=== PATIENT | female | born 1965 | race American Indian/Alaskan Native ===

== ENCOUNTER 2018-08-07 19:29 | Inpatient (IN) | payer SELFPAY ==
[2018-08-07 20:11] LABS: Basophils # (Auto) 0.1 K/mm3 (0.0-0.1); Basophils % (Auto) 0.9 % (0.0-1.8); Eosinophils # (Auto) 0.1 K/mm3 (0.0-0.4); Eosinophils % (Auto) 1.5 % (0.0-4.3); Hematocrit 44.8 % (30.3-42.9); Hemoglobin 15.4 gm/dl (10.1-14.3); Lymphocytes # (Auto) 0.8 K/mm3 (1.2-5.4); Lymphocytes % (Auto) 13.7 % (13.4-35.0); Mean Corpuscular HGB Conc 34 % (30-34); Mean Corpuscular Volume 91 fl (79-97); Monocytes # (Auto) 0.8 K/mm3 (0.0-0.8); Monocytes % (Auto) 12.5 % (0.0-7.3); Platelet Count 191 K/mm3 (140-440); Red Blood Count 4.92 M/mm3 (3.65-5.03); Red Cell Distribution Width 15.3 % (13.2-15.2)
[2018-08-07 20:28] LABS: BUN/Creatinine Ratio 8; Blood Urea Nitrogen 8 mg/dL (7-17); Calcium 8.9 mg/dL (8.4-10.2); Hemolysis Index 5
[2018-08-07 21:31] LABS: INR 1.06 (0.87-1.13)
[2018-08-07 21:32] LABS: Partial Thromboplastin Time 27.5 Sec. (24.2-36.6)
--- NOTE | 2018-08-07 21:43 | XRay Report ---
FINAL REPORT EXAM: XR CHEST ROUTINE 2V HISTORY: Shortness of breath TECHNIQUE: Two views of the chest Comparison: None FINDINGS: Heart size upper limits normal. Mild scarring in both lung bases. Lungs are clear and well expanded without focal infiltrate or consolidation. Imaged axial skeleton is unremarkable other than mild left greater than right acromioclavicular degen erative spurring and incompletely imaged bone chip along the superior aspect of the right humeral hea d. IMPRESSION: No acute cardiopulmonary disease identified. Heart size upper limits normal.
[2018-08-07] MEDS ORDERED: ZOFRAN IV ONE (21:45)
[2018-08-07] MEDS ORDERED: DILAUDID IV ONE (21:45)
[2018-08-07] MEDS ORDERED: K-DUR PO ONE (21:50)
--- NOTE | 2018-08-07 21:51 | Emergency Department Report ---
ED Headache [facility] - General Chief Complaint: Dyspnea/Respdistress Stated Complaint: SOB Time Seen by Provider: 08/07/18 21:35 Source: patient Exam Limitations: no limitations - History of Present Illness Initial Comments: 53-year-old female with a past medical history of CHF (currently wearing a life vest), frequent PVCs, and nontraumatic mitral valve regurgitation visits to the hospital complaining of headache and neck pain 3 days. 3 days ago patient had onset of pain to her neck or headache and has been constant. Pain reported as 9/10 in intensity. Patient was tearful upon arrival states she has not been able to sleep for several days secondary to pain. She's taken [id number] medicine without improvement. She also complains of some mild shortness of breath and dyspnea on exertion. She denies chest pain, pain with deep inspiration, calf tenderness, leg edema, or history of PE/DVT. Patient relocated here from [place] on June 30 and has not traveled since. She does not have any local physicians.. Allergies/Adverse Reactions: Allergies No Known Allergies Allergy (Unverified 08/07/18 19:48) ED Review of Systems ROS: Stated complaint: SOB Other details as noted in HPI ED Past Medical Hx - Past Medical History Hx Congestive Heart Failure: Yes (heart muscle disorder,Non-traumatic Mitral Regurgitation,PVC'S) Hx Asthma: Yes Additional medical history: life vest - Surgical History Past Surgical History?: No - Social History Smoking Status: Current Every Day Smoker Substance Use Type: None ED Physical Exam - General Limitations: No Limitations - Other Other exam information: General: No limitations, patient is alert in no acute distress Head exam: Atraumatic, normocephalic Eyes exam: Normal appearance, pupils equal reactive to light, extraocular movements intact ENT: Moist mucous membrane, normal oropharynx Neck exam: Normal inspection, full range of motion, no meningismus, posterior neck tenderness worse with movement Respiratory exam: Clear to auscultation bilateral, no wheezes, rales, crackles Cardiovascular: Normal rate and rhythm, normal heart sounds Abdomen: Soft, nondistended, and nontender, with normal bowel sounds, no rebound, or guarding Extremity: Full range of motion normal inspection no deformity, no calf tenderness or edema Back: Normal Inspection, full range of motion, no tenderness Neurologic: Alert, oriented x3, cranial nerves intact, no motor or sensory deficit Psychiatric: normal affect, normal mood Skin: Warm, dry, intact ED Course Vital Signs 08/07/18 08/07/18 08/07/18 19:42 21:00 21:43 Temperature 99.5 F Pulse Rate 103 H 57 L Respiratory 24 26 H Rate Blood Pressure 143/85 189/116 O2 Sat by Pulse 100 100 100 Oximetry 08/07/18 08/07/18 08/07/18 21:45 22:00 22:05 Temperature Pulse Rate Respiratory 22 24 Rate Blood Pressure 145/90 145/90 O2 Sat by Pulse 96 97 Oximetry 08/07/18 08/07/18 08/07/18 22:34 22:46 22:47 Temperature Pulse Rate 54 L Respiratory Rate Blood Pressure 145/90 119/68 O2 Sat by Pulse 98 95 Oximetry 08/07/18 08/07/18 08/07/18 23:00 23:16 23:30 Temperature Pulse Rate Respiratory Rate Blood Pressure 119/68 109/46 109/46 O2 Sat by Pulse 94 90 96 Oximetry 08/07/18 08/08/18 08/08/18 23:49 00:01 00:16 Temperature Pulse Rate Respiratory Rate Blood Pressure 114/47 118/46 106/39 O2 Sat by Pulse 95 90 Oximetry 08/08/18 08/08/18 08/08/18 00:30 00:46 01:00 Temperature Pulse Rate Respiratory Rate Blood Pressure 106/39 116/52 110/60 O2 Sat by Pulse 94 91 94 Oximetry 08/08/18 08/08/18 08/08/18 01:16 01:31 01:45 Temperature Pulse Rate Respiratory Rate Blood Pressure 124/55 103/44 103/41 O2 Sat by Pulse 95 93 96 Oximetry 08/08/18 08/08/18 08/08/18 02:00 02:15 02:18 Temperature Pulse Rate 64 Respiratory Rate Blood Pressure 103/41 88/48 O2 Sat by Pulse 96 94 Oximetry - Reevaluation(s) Reevaluation #1: 08/08/18 00:49 Patient has some decrease in the pain after receiving initial dose of medication. She seems to have pain with touching and moving her neck from side to side will be provided additional meds. Reevaluation #2: 08/08/18 03:16 Patient's blood pressure systolic currently in the 80s and patient diaphoretic. 500 mL bolus of normal saline ordered. 08/08/18 03:34 Patient receiving normal saline IV bolus. Systolic is now in the 90s. Patient states she is feeling better with fluid hydration. She also states that she can now move her neck after receiving additional Dilaudid, Toradol, and Flexeril. It is possible that these medications might cause an acute drop in her blood pressure. ED Medical Decision Making - Lab Data Result diagrams: 08/07/18 20:00 08/07/18 20:00 Lab Results 08/07/18 08/07/18 08/07/18 Range/Units 20:00 20:00 21:10 WBC 6.0 (4.5-11.0) K/mm3 RBC 4.92 (3.65-5.03) M/mm3 Hgb 15.4 H (10.1-14.3) gm/dl Hct 44.8 H (30.3-42.9) % MCV 91 (79-97) fl MCH 31 (28-32) pg MCHC 34 (30-34) % RDW 15.3 H (13.2-15.2) % Plt Count 191 (140-440) K/mm3 Lymph % (Auto) 13.7 (13.4-35.0) % Real % (Auto) 12.5 H (0.0-7.3) % Eos % (Auto) 1.5 (0.0-4.3) % Baso % (Auto) 0.9 (0.0-1.8) % Lymph # 0.8 L (1.2-5.4) K/mm3 Real # 0.8 (0.0-0.8) K/mm3 Eos # 0.1 (0.0-0.4) K/mm3 Baso # 0.1 (0.0-0.1) K/mm3 Seg Neutrophils % 71.4 H (40.0-70.0) % Seg Neutrophils # 4.3 (1.8-7.7) K/mm3 PT 14.2 (12.2-14.9) Sec. INR 1.06 (0.87-1.13) APTT 27.5 (24.2-36.6) Sec. Sodium 136 L (137-145) mmol/L Potassium 3.3 L (3.6-5.0) mmol/L Chloride 98.6 (98-107) mmol/L Carbon Dioxide 23 (22-30) mmol/L Anion Gap 18 mmol/L BUN 8 (7-17) mg/dL Creatinine 1.0 (0.7-1.2) mg/dL Estimated GFR 58 ml/min BUN/Creatinine Ratio 8 % Glucose 117 H (65-100) mg/dL Calcium 8.9 (8.4-10.2) mg/dL Magnesium (1.7-2.3) mg/dL Troponin T < 0.010 (0.00-0.029) ng/mL NT-Pro-B Natriuret Pep (0-900) pg/mL 08/07/18 08/07/18 Range/Units 21:10 21:10 WBC (4.5-11.0) K/mm3 RBC (3.65-5.03) M/mm3 Hgb (10.1-14.3) gm/dl Hct (30.3-42.9) % MCV (79-97) fl MCH (28-32) pg MCHC (30-34) % RDW (13.2-15.2) % Plt Count (140-440) K/mm3 Lymph % (Auto) (13.4-35.0) % Real % (Auto) (0.0-7.3) % Eos % (Auto) (0.0-4.3) % Baso % (Auto) (0.0-1.8) % Lymph # (1.2-5.4) K/mm3 Real # (0.0-0.8) K/mm3 Eos # (0.0-0.4) K/mm3 Baso # (0.0-0.1) K/mm3 Seg Neutrophils % (40.0-70.0) % Seg Neutrophils # (1.8-7.7) K/mm3 PT (12.2-14.9) Sec. INR (0.87-1.13) APTT (24.2-36.6) Sec. Sodium (137-145) mmol/L Potassium (3.6-5.0) mmol/L Chloride (98-107) mmol/L Carbon Dioxide (22-30) mmol/L Anion Gap mmol/L BUN (7-17) mg/dL Creatinine (0.7-1.2) mg/dL Estimated GFR ml/min BUN/Creatinine Ratio % Glucose (65-100) mg/dL Calcium (8.4-10.2) mg/dL Magnesium 2.00 (1.7-2.3) mg/dL Troponin T (0.00-0.029) ng/mL NT-Pro-B Natriuret Pep 2583 H (0-900) pg/mL - EKG Data -: EKG Interpreted by Me EKG shows normal: sinus rhythm, axis (qrs 23), QRS complexes (qrsd 84), ST-T waves (no stemi, pvc) Rate: normal - EKG Data When compared to previous EKG there are: previous EKG unavailable - Radiology Data Radiology results: report reviewed Two-view chest x-ray: No acute findings. Heart size upper limits of normal. - Medical Decision Making Patient developed hypotension in the ED during treatment. She will be admitted to the hospital. Imaging studies did not show specific cause for patient's headache and neck pain. No acute abnormality on chest x-ray. Hospitalist inf ormed for admission - Differential Diagnosis dissection, aneurysm, SAH, ICH, CHF Critical Care Time: No Critical care attestation.: If time is entered above; I have spent that time in minutes in the direct care of this critically ill patient, excluding procedure time. ED Disposition Clinical Impression: Headache, Neck pain, SOB (shortness of breath), Hx of congestive heart failure, Hypotension Disposition: OP ADMIT IP TO THIS HOSP Is pt being admited?: Yes Condition: Stable Time of Disposition: 03:35 (Dr. Thornton/Hospitalist)
[2018-08-07] MEDS ORDERED: KCL 10MEQ/100ML 10 MEQ/100 ML BAG IV SCH (22:00)
--- NOTE | 2018-08-07 22:56 | Cat Scan Report ---
FINAL REPORT PROCEDURE: CT HEAD/BRAIN WO CON TECHNIQUE: Computerized tomography of the head was performed without contrast material. HISTORY: najera, neck pain COMPARISON: No prior studies are available for comparison. FINDINGS: Skull and scalp: Normal. Paranasal sinuses: Normal. Ventricles and subarachnoid spaces: Normal. Cerebrum: No evidence of hemorrhage, acute infarction or mass . Cerebellum and brainstem: No evidence of hemorrhage, acute infarction or mass. Vasculature: Normal. Comments: None. IMPRESSION: Normal Examination
--- NOTE | 2018-08-07 23:04 | Cat Scan Report ---
FINAL REPORT PROCEDURE: CT ANGIO NECK TECHNIQUE: Computerized tomographic angiography of the neck was performed after the IV injection of iodinated nonionic contrast including image processing. The image data was postprocessed using 2-dime nsional multiplanar reformatted (MPR) and 3-dimensional (MIP and/or volume rendered) techniques. HISTORY: najera, neck pain COMPARISON: No prior studies are available for comparison. Note: Assessment of carotid artery stenosis is based on measurement of the distal internal carotid a rtery diameter as the denominator for stenosis calculations and the [place] Symptomatic Caroti d Endarterectomy Trial (NASCET) stenosis criteria . CPT 3100F FINDINGS: Sinuses: Normal . Non vascular cervical structures: Cervical spondylosis.. Aortic arch: Normal . Right carotid artery: Normal . Left carotid artery: Mild plaque at the carotid bifurcation. No focal narrowing. Vertebral arteries: Normal . IMPRESSION: No stenosis or dissection.
--- NOTE | 2018-08-07 23:09 | Cat Scan Report ---
FINAL REPORT PROCEDURE: CT ANGIO HEAD TECHNIQUE: Computerized tomographic angiography of the head was performed after the IV injection of iodinated nonionic contrast including image processing. The image data was postprocessed using 2-dime nsional multiplanar reformatted (MPR) and 3-dimensional (MIP and/or volume rendered) techniques. HISTORY: najera, neck pain COMPARISON: No prior studies are available for comparison. FINDINGS: Cerebrum: No evidence of hemorrhage, acute ischemia or mass. Cerebellum: No evidence of hemorrhage, acute ischemia or mass. Subarachnoid spaces and ventricles: Normal. Intracranial vessels: Carotid siphon: Normal. Anterior cerebral: Normal. Middle cerebral: Normal. Posterior cerebral:Normal. Vertebral arteries including basilar: Normal. Aneurysms: None. Dural sinuses: Normal. IMPRESSION: Normal Examination.
[2018-08-08] MEDS ORDERED: TORADOL IV ONE (00:49)
[2018-08-08] MEDS ORDERED: FLEXERIL PO ONE ×2 (00:49→00:52)
[2018-08-08] MEDS ORDERED: DILAUDID IV ONE (00:49)
[2018-08-08] MEDS ORDERED: NACL 0.9% 500 ML 500 ML IV ONE ×2 (03:15→04:10)
[2018-08-08] MEDS ORDERED: NACL 0.9% 500 ML 500 ML ONE (03:19)
[2018-08-08] MEDS ORDERED: ZOFRAN IV PRN (04:03)
[2018-08-08] MEDS ORDERED: SODIUM CHLORIDE FLUSH SYRINGE 10 ML IV PRN (04:03)
--- NOTE | 2018-08-08 04:10 | History and Physical Report ---
History of Present Illness Date of examination: 08/08/18 History of present illness: 53-year-old woman with a history of CHF, diagnosed in April of last year, started wearing a life vest comes emergency room today because she was having pain started in the right side of the neck going although he upped the forehead, she describes it as a pulsating pain, intermittent over 1 minute, no radiation, intensity 7/10, not relieved with amoxicillin and Tylenol which she took at home. She was given dilaudid in the emergency room, her pressure dropped and was given 500 mL normal saline bolus. Patient states that she has shortness of breath when she realized that she had to come to the emergency room, she usually get panic attacks when she has about a hospital Review of systems Constitutional: no weight loss, chills, fever Ears, eyes, nose, mouth and throat: no nasal congestion, no nasal discharge, no sinus pressure, no vision change, no red eye. Neck: No neck pain or rigidity. Cardiovascular: no palpitations, chest pain Respiratory: no cough Gastrointestinal: no hematochezia, abdominal pain Genitourinary : no frequency , no hematuria Musculoskeletal: no joint swelling or muscle ache Integumentary: no rash, no pruritis Neurological: no parathesias, no focal weakness Endocrine: no cold or heat intolerance, no polyuria or polydipsia Hematologic/Lymphatic: no easy bruising, no easy bleeding, no gland swelling Allergic/Immunologic: no urticaria, no angioedema. PAST MEDICAL HISTORY:CHF PAST SURGICAL HISTORY: None SOCIAL HISTORY: As cut down on drinking, now drinks a bottle of wine for the week, no drugs, one third pack a day FAMILY HISTORY: Hypertension Medications and Allergies Allergies Allergy/AdvReac Type Severity Reaction Status Date / Time No Known Allergies Allergy Unverified 08/07/18 19:48 Home Medications Medication Instructions Recorded Confirmed Last Taken Type Albuterol 90 mcg INHALATION Q4HR PRN 08/08/18 08/08/18 Unknown History Amiodarone 200 mg PO BID 08/08/18 08/08/18 08/07/18 History Carvedilol 3.125 mg PO BID 08/08/18 08/08/18 08/07/18 History Furosemide 10 - 20 mg PO BID 08/08/18 08/08/18 08/07/18 History 20mg Losartan 25 mg PO DAILY 08/08/18 08/08/18 08/07/18 History RX: Amoxicillin/K Clav Tab 1 each PO Q12HR #12 tablet 08/10/18 Unknown Rx [Augmentin 875MG TAB] RX: Ibuprofen [Motrin 600 MG tab] 600 mg PO Q8H PRN #15 tablet 08/10/18 Unknown Rx Exam - Physical Exam Narrative exam: General Apperance: The patient lying in bed, breathing comfortable HEENT: Normocephalic, atraumatic. Pupils equally round and reactive to light, EOMI, no sclericterus or JVD or thyromegaly or nodule. , no carotid bruit, mucous membranes moist, no exudate or erythema Heart: S1-S2, regular is rhythm Lungs: Clear to auscultation bilaterally, breathing comfortable Abdomen: Positive bowel sounds, soft, nontender, nondistended, no organomegaly Extremities: No edema cyanosis clubbing Skin: no rash, nodule, warm and dry Neuro: cranial nerves 2-12 intact, speech is fluent, motor/sensory intact - Constitutional Vitals: Temp Pulse Resp BP Pulse Ox 99.5 F 56 L 18 99/57 97 08/07/18 19:42 08/08/18 03:23 08/08/18 03:23 08/08/18 04:00 08/08/18 04:00 Results - Labs CBC & Chem 7: 08/10/18 06:03 08/10/18 06:03 Labs: Abnormal lab results 08/07/18 08/07/18 08/07/18 Range/Units 20:00 20:00 21:10 Hgb 15.4 H (10.1-14.3) gm/dl Hct 44.8 H (30.3-42.9) % RDW 15.3 H (13.2-15.2) % [place] % (Auto) 12.5 H (0.0-7.3) % Lymph # 0.8 L (1.2-5.4) K/mm3 Seg Neutrophils % 71.4 H (40.0-70.0) % Sodium 136 L (137-145) mmol/L Potassium 3.3 L (3.6-5.0) mmol/L Glucose 117 H (65-100) mg/dL NT-Pro-B Natriuret Pep 2583 H (0-900) pg/mL - Imaging and Cardiology CT Scan - head: report reviewed Assessment and Plan CTA head and neck review Assessment Hypotension most likely secondary to medications CHF, stable Plan Admit to medicine Check cardiac enzymes, consult cardiology Hold antihypertensive for now DVT prophylaxis
[2018-08-08 04:38] LABS: Hematocrit 40.9 % (30.3-42.9); Hemoglobin 13.4 gm/dl (10.1-14.3); Mean Corpuscular HGB Conc 33 % (30-34); Mean Corpuscular Volume 93 fl (79-97); Platelet Count 165 K/mm3 (140-440); Red Blood Count 4.41 M/mm3 (3.65-5.03); Red Cell Distribution Width 15.3 % (13.2-15.2)
[2018-08-08 05:03] LABS: BUN/Creatinine Ratio 10; Blood Urea Nitrogen 9 mg/dL (7-17); Calcium 8.1 mg/dL (8.4-10.2); Creatine Kinase MB 1.2 ng/mL (0.0-4.0); Hemolysis Index 4
[2018-08-08 07:34] LABS: Basophils % (Manual) 0 % (0.0-1.8); Eosinophils % (Manual) 0 % (0.0-4.3); Hypochromasia Few; Total Cells Counted 100
[2018-08-08] MEDS: TYLENOL PO PRN (08:38)
[2018-08-08] MEDS: SODIUM CHLORIDE FLUSH SYRINGE 10 ML IV SCH ×2 (09:00→23:23)
[2018-08-08] MEDS ORDERED: LOVENOX SUB-Q SCH (10:00)
[2018-08-08 10:14] LABS: Creatine Kinase MB 1.5 ng/mL (0.0-4.0)
--- NOTE | 2018-08-08 11:15 | Consultation ---
History of Present Illness Consult date: 08/08/18 Requesting physician: EARLE LUNA Consult reason: other (Cardiomyopathy with lifevest) History of present illness: She has a history of what appears to be nonischemic cardiomyopathy and HF diagnosed at [facility] in [place], [place] in April 2018. She claims that she underwent right and left heart catheterization without any significant CAD. She also mentioned that she had a lot of ventricular ectopies. She has a lifevest in place. Currently, she has no dyspnea, chest pain, orthopnea. She presented to [facility] ER with a 3-day history of severe bilateral neck pain radiating to her head. She also has some headache. Head and neck CTA are unremarkable. Past History Past Medical History: heart failure, other (NICMP, PVCs) Past Surgical History: No surgical history Social history: single (has 1 child), smoking, other (occasional drinking) Family history: other (Her mother has a history of cardiomyopathy) Medications and Allergies Allergies Allergy/AdvReac Type Severity Reaction Status Date / Time No Known Allergies Allergy Unverified 08/07/18 19:48 Home Medications Medication Instructions Recorded Confirmed Last Taken Type Albuterol 90 mcg INHALATION Q4HR PRN 08/08/18 08/08/18 Unknown History Amiodarone 200 mg PO BID 08/08/18 08/08/18 08/07/18 History Carvedilol 3.125 mg PO BID 08/08/18 08/08/18 08/07/18 History Furosemide 10 - 20 mg PO BID 08/08/18 08/08/18 08/07/18 History 20mg Losartan 25 mg PO DAILY 08/08/18 08/08/18 08/07/18 History Active Meds: Active Medications Acetaminophen (Tylenol) 650 mg PO Q4H PRN PRN Reason: Pain MILD(1-3)/Fever >100.5/LYNN Last Admin: 08/08/18 08:38 Dose: 650 mg Documented by: Enoxaparin Sodium (Lovenox) 30 mg SUB-Q QDAY [facility] Last Admin: 08/08/18 09:00 Dose: 30 mg Documented by: Ondansetron HCl (Zofran) 4 mg IV Q4H PRN PRN Reason: Nausea And Vomiting Sodium Chloride (Sodium Chloride Flush Syringe 10 Ml) 10 ml IV BID [facility] Last Admin: 08/08/18 09:00 Dose: 10 ml Documented by: Sodium Chloride (Sodium Chloride Flush Syringe 10 Ml) 10 ml IV PRN PRN PRN Reason: LINE FLUSH Review of Systems Constitutional: no fever, no chills Ears, nose, mouth and throat: no ear pain, no sore throat Cardiovascular: no chest pain, no orthopnea, no palpitations, no lightheadedness, no shortness of breath Respiratory: no cough, no hemoptysis, no shortness of breath Gastrointestinal: no abdominal pain, no nausea, no vomiting, no diarrhea, no constipation Genitourinary Female: no dysuria, no urinary frequency Rectal: no pain, no bleeding Musculoskeletal: neck pain Integumentary: no rash, no pruritis Neurological: headaches, no weakness, no parathesias Endocrine: no cold intolerance, no heat intolerance Hematologic/Lymphatic: no easy bruising, no easy bleeding Allergic/Immunologic: no urticaria, no wheezing Physical Examination Vital Signs Last Vital Signs Temp 97.6 F 08/08/18 08:41 Pulse 56 L 08/08/18 08:39 Resp 18 08/08/18 08:39 BP 108/66 08/08/18 08:39 Pulse Ox 98 08/08/18 08:39 General appearance: no acute distress HEENT: Positive: EOMI, Normocephaly, Mucus Membranes Moist Neck: Positive: neck supple, trachea midline Cardiac: Positive: Reg Rate and Rhythm, S1/S2 Lungs: Positive: clear to auscultation Neuro: Positive: Grossly Intact Abdomen: Positive: Soft, Active Bowel Sounds. Negative: Tender Skin: Positive: Clear. Negative: Rash Musculoskeletal: Normal Range of Motion Extremities: Present: normal. Absent: edema Results 08/08/18 04:16 08/08/18 04:16 Cardiac Enzymes 08/08/18 08/08/18 Range/Units 04:16 09:20 CK-MB (CK-2) 1.2 1.5 (0.0-4.0) ng/mL Coagulation 08/07/18 Range/Units 21:10 PT 14.2 (12.2-14.9) Sec. INR 1.06 (0.87-1.13) APTT 27.5 (24.2-36.6) Sec. CBC 08/07/18 08/08/18 Range/Units 20:00 04:16 WBC 6.0 5.1 (4.5-11.0) K/mm3 RBC 4.92 4.41 (3.65-5.03) M/mm3 Hgb 15.4 H 13.4 (10.1-14.3) gm/dl Hct 44.8 H 40.9 (30.3-42.9) % Plt Count 191 165 (140-440) K/mm3 Lymph # 0.8 L (1.2-5.4) K/mm3 Bertie # 0.8 (0.0-0.8) K/mm3 Eos # 0.1 (0.0-0.4) K/mm3 Baso # 0.1 (0.0-0.1) K/mm3 Comprehensive Metabolic Panel 08/07/18 08/08/18 Range/Units 20:00 04:16 Sodium 136 L 135 L (137-145) mmol/L Potassium 3.3 L 4.1 D (3.6-5.0) mmol/L Chloride 98.6 102.4 (98-107) mmol/L Carbon Dioxide 23 24 (22-30) mmol/L BUN 8 9 (7-17) mg/dL Creatinine 1.0 0.9 (0.7-1.2) mg/dL Glucose 117 H 105 H (65-100) mg/dL Calcium 8.9 8.1 L (8.4-10.2) mg/dL - Imaging and Cardiology EKG: image reviewed EKG interpretations - Telemetry EKG Rhythm: Sinus Rhythm - EKG Sinus rhythms and dysrhythmias: sinus rhythm Ventricular dysrhythmias: ventricular premature com Chamber hypertrophy or enlargement: left ventricular hypertro Assessment and Plan Obtain medical records from [facility] in [place], [place]. Her cardiac status appears stable at this time. Resume amiodarone. Other cardiac medications as BP permits. - Patient Problems (1) Neck pain Current Visit: Yes Status: Acute (2) Headache Current Visit: Yes Status: Acute (3) Nonischemic cardiomyopathy Current Visit: Yes Status: Chronic (4) Ventricular ectopy Current Visit: Yes Status: Chronic (5) HFrEF (heart failure with reduced ejection fraction) Current Visit: Yes Status: Chronic Qualifiers: Heart failure chronicity: chronic Qualified Code(s): I50.22 - Chronic systolic (congestive) heart failure
[2018-08-08] MEDS ORDERED: MORPHINE IV PRN (15:30)
[2018-08-08] MEDS: MORPHINE IV PRN ×2 (15:45→23:23)
--- NOTE | 2018-08-08 16:45 | Event Note ---
Date: 08/08/18 Patient was seen and evaluated this morning, patient admitted earlier this morning for the management of neck pain. Patient has history of CHF. Cardiology was consulted. CTA was negative. Continue management per H&P.
[2018-08-08] MEDS: IBUPROFEN PO PRN (21:04)
[2018-08-09 06:41] LABS: BUN/Creatinine Ratio 11; Blood Urea Nitrogen 8 mg/dL (7-17); Calcium 8.5 mg/dL (8.4-10.2); Hemolysis Index 5
[2018-08-09] MEDS: SODIUM CHLORIDE FLUSH SYRINGE 10 ML IV SCH ×2 (10:32→22:39)
[2018-08-09] MEDS: LOVENOX SUB-Q SCH (10:32)
[2018-08-09] MEDS: AUGMENTIN 875 MG PO SCH ×2 (10:46→22:39)
--- NOTE | 2018-08-09 12:38 | Progress Note ---
Assessment and Plan Medical records from [facility] in [place], [place] obtained. Pt underwent LHC and RHC 04/2018 - normal coronaries except for kink in prox LAD that appeared severe in some views, physiologic testing with Pd/Pa was normal@1.0, dilated LV with EF <20% with global hypokinesis, normal RH pressures with mean PA 16mmHg, CO 2.52, CI 1.29. Echo done 04/2018 showed EF 35-40%, LV mildly dilated, restrictive diastolic filling pattern, LA mildly dilated, mod to severe MR. Her cardiac status appears stable at this time. Resume amiodarone. Other cardiac medications as BP permits. The patient has been seen in conjunction with Dr. Souza who agrees with the assessment and plan of care. - Patient Problems (1) Neck pain Current Visit: Yes Status: Acute (2) Headache Current Visit: Yes Status: Acute (3) Nonischemic cardiomyopathy Current Visit: Yes Status: Chronic (4) Ventricular ectopy Current Visit: Yes Status: Chronic (5) HFrEF (heart failure with reduced ejection fraction) Current Visit: Yes Status: Chronic Qualifiers: Heart failure chronicity: chronic Qualified Code(s): I50.22 - Chronic systolic (congestive) heart failure Subjective Date of service: 08/09/18 Principal diagnosis: headache, neck pain, ear pain Interval history: pt resting in bed, c/o headache and neck pain and ear pain. no current cardiac complaints. Objective Last Vital Signs Temp 98.3 F 08/09/18 11:57 Pulse 59 L 08/09/18 11:58 Resp 18 08/09/18 11:58 BP 118/79 08/09/18 11:58 Pulse Ox 99 08/09/18 11:58 - Physical Examination General: No Apparent Distress HEENT: Positive: EOMI, Normocephaly, Mucus Membranes Moist Neck: Positive: neck supple, trachea midline Cardiac: Positive: Reg Rate and Rhythm, S1/S2 Lungs: Positive: Decreased Breath Sounds Neuro: Positive: Grossly Intact Abdomen: Positive: Soft, Active Bowel Sounds. Negative: Tender Skin: Positive: Clear. Negative: Rash Musculoskeletal: Normal Range of Motion Extremities: Present: normal. Absent: edema - Labs and Meds Comprehensive Metabolic Panel 08/09/18 Range/Units 06:02 Sodium 123 L D (137-145) mmol/L Potassium 3.7 (3.6-5.0) mmol/L Chloride 90.0 L (98-107) mmol/L Carbon Dioxide 27 (22-30) mmol/L BUN 8 (7-17) mg/dL Creatinine 0.7 (0.7-1.2) mg/dL Glucose 88 (65-100) mg/dL Calcium 8.5 (8.4-10.2) mg/dL - Imaging and Cardiology EKG: image reviewed - EKG Sinus rhythms and dysrhythmias: sinus rhythm Ventricular dysrhythmias: ventricular premature com Chamber hypertrophy or enlargement: left ventricular hypertro
[2018-08-09] MEDS: CORDARONE PO SCH (15:21)
--- NOTE | 2018-08-09 15:26 | Progress Note ---
Assessment and Plan Assessment and plan: Severe neck pain radiating to the right ear - CTA neck was negative for aneurysm or dissection Acute otitis media - Patient has fever and pain in the right ear - Patient is on Augmentin Hyponatremia - Pending repeat sodium level - If it is still low I will consult nephrology Chronic systolic CHF with EF of 20% - Cardiology is following her DVT prophylaxis - Lovenox Disposition - Possible discharge tomorrow History Interval history: Patient was seen and evaluated this morning, since complaining severe pain radiating to the right ear. Patient had episode of fever overnight. Hospitalist Physical - Physical exam Narrative exam: Not in cardiopulmonary distress. The patient is obese. Vital signs as documented. Head exam is unremarkable. No scleral icterus . Neck is without jugular venous distension, thyromegaly, or carotid bruits. Lungs are clear to auscultation. Cardiac exam reveals regular rate and Rhythm. First and second heart sounds normal. No murmurs, rubs or gallops. Abdominal exam reveals normal bowel sounds, no masses, no organomegaly and no aortic enlargement. Extremities are nonedematous and both femoral and pedal pulses are normal. 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 No focal weakness. - Constitutional Vitals: Temp Pulse Resp BP Pulse Ox 98.3 F 51 L 18 118/79 99 08/09/18 11:57 08/09/18 14:00 08/09/18 11:58 08/09/18 11:58 08/09/18 11:58 General appearance: Present: no acute distress Results - Labs CBC & Chem 7: 08/08/18 04:16 08/09/18 06:02 Labs: Laboratory Last Values WBC 5.1 K/mm3 (4.5-11.0) 08/08/18 04:16 RBC 4.41 M/mm3 (3.65-5.03) 08/08/18 04:16 Hgb 13.4 gm/dl (10.1-14.3) 08/08/18 04:16 Hct 40.9 % (30.3-42.9) 08/08/18 04:16 MCV 93 fl (79-97) 08/08/18 04:16 MCH 30 pg (28-32) 08/08/18 04:16 MCHC 33 % (30-34) 08/08/18 04:16 RDW 15.3 % (13.2-15.2) H 08/08/18 04:16 Plt Count 165 K/mm3 (140-440) 08/08/18 04:16 Lymph % (Auto) 13.7 % (13.4-35.0) 08/07/18 20:00 [place] % (Auto) Assistant Import Manager 08/08/18 04:16 Eos % (Auto) 1.5 % (0.0-4.3) 08/07/18 20:00 Baso % (Auto) 0.9 % (0.0-1.8) 08/07/18 20:00 Lymph # 0.8 K/mm3 (1.2-5.4) L 08/07/18 20:00 [place] # 0.8 K/mm3 (0.0-0.8) 08/07/18 20:00 Eos # 0.1 K/mm3 (0.0-0.4) 08/07/18 20:00 Baso # 0.1 K/mm3 (0.0-0.1) 08/07/18 20:00 Add Manual Diff Complete 08/08/18 04:16 Total Counted 100 08/08/18 04:16 Seg Neutrophils % 71.4 % (40.0-70.0) H 08/07/18 20:00 Seg Neuts % (Manual) 66.0 % (40.0-70.0) 08/08/18 04:16 Band Neutrophils % 0 % 08/08/18 04:16 Lymphocytes % (Manual) 18.0 % (13.4-35.0) 08/08/18 04:16 Reactive Lymphs % (Man) 0 % 08/08/18 04:16 Monocytes % (Manual) 16.0 % (0.0-7.3) H 08/08/18 04:16 Eosinophils % (Manual) 0 % (0.0-4.3) 08/08/18 04:16 Basophils % (Manual) 0 % (0.0-1.8) 08/08/18 04:16 Metamyelocytes % 0 % 08/08/18 04:16 Myelocytes % 0 % 08/08/18 04:16 Promyelocytes % 0 % 08/08/18 04:16 Blast Cells % 0 % 08/08/18 04:16 Nucleated RBC % Not Reportable 08/08/18 04:16 Seg Neutrophils # 4.3 K/mm3 (1.8-7.7) 08/07/18 20:00 Seg Neutrophils # Man 3.4 K/mm3 (1.8-7.7) 08/08/18 04:16 Band Neutrophils # 0.0 K/mm3 08/08/18 04:16 Lymphocytes # (Manual) 0.9 K/mm3 (1.2-5.4) L 08/08/18 04:16 Abs React Lymphs (Man) 0.0 K/mm3 08/08/18 04:16 Monocytes # (Manual) 0.8 K/mm3 (0.0-0.8) 08/08/18 04:16 Eosinophils # (Manual) 0.0 K/mm3 (0.0-0.4) 08/08/18 04:16 Basophils # (Manual) 0.0 K/mm3 (0.0-0.1) 08/08/18 04:16 Metamyelocytes # 0.0 K/mm3 08/08/18 04:16 Myelocytes # 0.0 K/mm3 08/08/18 04:16 Promyelocytes # 0.0 K/mm3 08/08/18 04:16 Blast Cells # 0.0 K/mm3 08/08/18 04:16 WBC Morphology Not Reportable 08/08/18 04:16 Hypersegmented Neuts Not Reportable 08/08/18 04:16 Hyposegmented Neuts Not Reportable 08/08/18 04:16 Hypogranular Neuts Not Reportable 08/08/18 04:16 Smudge Cells Not Reportable 08/08/18 04:16 Toxic Granulation Not Reportable 08/08/18 04:16 Toxic Vacuolation Not Reportable 08/08/18 04:16 Dohle Bodies Not Reportable 08/08/18 04:16 Pelger-Huet Anomaly Not Reportable 08/08/18 04:16 Gregory Rods Not Reportable 08/08/18 04:16 Platelet Estimate Appears normal 08/08/18 04:16 Clumped Platelets Not Reportable 08/08/18 04:16 Plt Clumps, EDTA Not Reportable 08/08/18 04:16 Large Platelets Not Reportable 08/08/18 04:16 Giant Platelets Not Reportable 08/08/18 04:16 Platelet Satelliting Not Reportable 08/08/18 04:16 Plt Morphology Comment Not Reportable 08/08/18 04:16 RBC Morphology Not Reportable 08/08/18 04:16 Dimorphic RBCs Not Reportable 08/08/18 04:16 Polychromasia Not Reportable 08/08/18 04:16 Hypochromasia Few 08/08/18 04:16 Poikilocytosis Not Reportable 08/08/18 04:16 Anisocytosis Not Reportable 08/08/18 04:16 Microcytosis Not Reportable 08/08/18 04:16 Macrocytosis Not Reportable 08/08/18 04:16 Spherocytes Not Reportable 08/08/18 04:16 Pappenheimer Bodies Not Reportable 08/08/18 04:16 Sickle Cells Not Reportable 08/08/18 04:16 Target Cells Not Reportable 08/08/18 04:16 Tear Drop Cells Not Reportable 08/08/18 04:16 Ovalocytes Not Reportable 08/08/18 04:16 Helmet Cells Not Reportable 08/08/18 04:16 Henry-Kerrick Bodies Not Reportable 08/08/18 04:16 [place] Rings Not Reportable 08/08/18 04:16 [place] Cells Not Reportable 08/08/18 04:16 Bite Cells Not Reportable 08/08/18 04:16 Crenated Cell Not Reportable 08/08/18 04:16 Elliptocytes Not Reportable 08/08/18 04:16 Acanthocytes (Spur) Not Reportable 08/08/18 04:16 Rouleaux Not Reportable 08/08/18 04:16 Hemoglobin C Crystals Not Reportable 08/08/18 04:16 Schistocytes Not Reportable 08/08/18 04:16 Malaria parasites Not Reportable 08/08/18 04:16 [place] Bodies Not Reportable 08/08/18 04:16 Hem Pathologist Commnt No 08/08/18 04:16 PT 14.2 Sec. (12.2-14.9) 08/07/18 21:10 INR 1.06 (0.87-1.13) 08/07/18 21:10 APTT 27.5 Sec. (24.2-36.6) 08/07/18 21:10 Sodium 123 mmol/L (137-145) L D 08/09/18 06:02 Potassium 3.7 mmol/L (3.6-5.0) 08/09/18 06:02 Chloride 90.0 mmol/L (98-107) L 08/09/18 06:02 Carbon Dioxide 27 mmol/L (22-30) 08/09/18 06:02 Anion Gap 10 mmol/L 08/09/18 06:02 BUN 8 mg/dL (7-17) 08/09/18 06:02 Creatinine 0.7 mg/dL (0.7-1.2) 08/09/18 06:02 Estimated GFR > 60 ml/min 08/09/18 06:02 BUN/Creatinine Ratio 11 % 08/09/18 06:02 Glucose 88 mg/dL (65-100) 08/09/18 06:02 POC Glucose 101 (70-105) 08/08/18 21:24 Calcium 8.5 mg/dL (8.4-10.2) 08/09/18 06:02 Magnesium 2.00 mg/dL (1.7-2.3) 08/07/18 21:10 Total Creatine Kinase 108 units/L (30-135) 08/08/18 09:20 CK-MB (CK-2) 1.5 ng/mL (0.0-4.0) 08/08/18 09:20 CK-MB (CK-2) Rel Index 1.3 (0-4) 08/08/18 09:20 Troponin T < 0.010 ng/mL (0.00-0.029) 08/08/18 09:20 NT-Pro-B Natriuret Pep 2583 pg/mL (0-900) H 08/07/18 21:10
[2018-08-09] MEDS: TYLENOL PO PRN ×2 (16:26→20:42)
[2018-08-09] MEDS: MORPHINE IV PRN (23:37)
[2018-08-10 06:22] LABS: Basophils % (Auto) 0.4 % (0.0-1.8); Eosinophils # (Auto) 0.1 K/mm3 (0.0-0.4); Eosinophils % (Auto) 1.2 % (0.0-4.3); Hematocrit 43.4 % (30.3-42.9); Hemoglobin 14.2 gm/dl (10.1-14.3); Lymphocytes # (Auto) 1.4 K/mm3 (1.2-5.4); Lymphocytes % (Auto) 19.6 % (13.4-35.0); Mean Corpuscular HGB Conc 33 % (30-34); Mean Corpuscular Volume 92 fl (79-97); Monocytes % (Auto) 14.8 % (0.0-7.3); Platelet Count 177 K/mm3 (140-440); Red Cell Distribution Width 15.2 % (13.2-15.2)
[2018-08-10 06:47] LABS: BUN/Creatinine Ratio 7; Blood Urea Nitrogen 6 mg/dL (7-17); Calcium 8.7 mg/dL (8.4-10.2); Hemolysis Index 3
[2018-08-10 08:16] VITALS: BP 135/81
[2018-08-10] MEDS: IBUPROFEN PO PRN (08:38)
[2018-08-10] MEDS: SODIUM CHLORIDE FLUSH SYRINGE 10 ML IV SCH (09:28)
[2018-08-10] MEDS: AUGMENTIN 875 MG PO SCH (09:28)
[2018-08-10] MEDS: CORDARONE PO SCH (09:28)
[2018-08-10] MEDS: LOVENOX SUB-Q SCH (09:28)
--- NOTE | 2018-08-10 10:19 | Discharge Summary ---
Providers - Providers Date of Admission: 08/08/18 04:03 Attending physician: DAVID LEMA MD 08/08/18 04:03 Consult to Physician [CONS] Routine Comment: Consulting Provider: CIARA WIN Physician Instructions: Reason For Exam: chf, hypotension Primary care physician: TYLER LORENZO Hospitalization Reason for admission: neck pain, acute otitis media Condition: Stable Pertinent studies: CTA neck; unremarkable Hospital course: 53-year-old woman with a history of CHF, diagnosed in April of last year, started wearing a life vest comes emergency room today because she was having pain started in the right side of the neck going although he upped the forehead, she describes it as a pulsating pain, intermittent over 1 minute, no radiation, intensity 7/10, not relieved with amoxicillin and Tylenol which she took at home. She was given dilaudid in the emergency room, her pressure dropped and was given 500 mL normal saline bolus. Patient states that she has shortness of breath when she realized that she had to come to the emergency room, she usually get panic attacks when she has about a hospital. Patient admitted to the hospital and was complaining severe ear pain and had episode of fever . Was treated with antibiotics and smptomatic treatment for neck pain. Cardiology saw her and get her record from her previous hospital and recommend no further intervention and discharged home in a stable condition. Disposition: TO HOME OR SELFCARE Time spent for discharge: 32 minutes - Discharge Diagnoses (1) Acute otitis media Status: Acute (2) Hx of congestive heart failure Status: Acute (3) Hypotension Status: Acute (4) Neck pain Status: Acute (5) Nonischemic cardiomyopathy Status: Chronic Core Measure Documentation - Palliative Care Palliative Care/ Comfort Measures: Not Applicable - Core Measures Any of the following diagnoses?: heart failure - Heart Failure Discharge Requirements VADIM/ARB for LVSD if EF <40%: Yes Beta al at discharge: Yes Exam - Physical Exam Narrative exam: Not in cardiopulmonary distress. The patient is obese. Vital signs as documented. Head exam is unremarkable. No scleral icterus . Neck is without jugular venous distension, thyromegaly, or carotid bruits. Lungs are clear to auscultation. Cardiac exam reveals regular rate and Rhythm. First and second heart sounds normal. No murmurs, rubs or gallops. Abdominal exam reveals normal bowel sounds, no masses, no organomegaly and no aortic enlargement. Extremities are nonedematous and both femoral and pedal pulses are normal. 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 No focal weakness. - Constitutional Vitals: Temp Pulse Resp BP Pulse Ox 100.1 F H 60 19 135/81 94 08/10/18 07:35 08/10/18 07:35 08/10/18 07:35 08/10/18 07:35 08/10/18 07:35 Plan Activity: no restrictions Weight Bearing Status: Full Weight Bearing Diet: low cholesterol, low salt Follow up with: TYLER LORENZO MD [Primary Care Provider] - 7 Days Prescriptions: Amoxicillin/K Clav Tab [Augmentin 875MG TAB] 1 each PO Q12HR #12 tablet Ibuprofen [Motrin 600 MG tab] 600 mg PO Q8H PRN #15 tablet PRN Reason: Pain, Mild (1-3)
--- NOTE | 2018-08-10 12:10 | Progress Note ---
Assessment and Plan Her cardiac status appears stable at this time. Pt may discharge home from cardiology standpoint. Recommend follow up in our office with Dr. Souza within 1-2 weeks of hospital discharge ([phone]). The patient has been seen in conjunction with Dr. Souza who agrees with the assessment and plan of care. - Patient Problems (1) Neck pain Current Visit: Yes Status: Acute (2) Headache Current Visit: Yes Status: Acute (3) Nonischemic cardiomyopathy Current Visit: Yes Status: Chronic (4) Ventricular ectopy Current Visit: Yes Status: Chronic (5) HFrEF (heart failure with reduced ejection fraction) Current Visit: Yes Status: Chronic Qualifiers: Heart failure chronicity: chronic Qualified Code(s): I50.22 - Chronic systolic (congestive) heart failure Subjective Date of service: 08/10/18 Principal diagnosis: headache, neck pain, ear pain Interval history: pt resting in bed, states headache and neck pain and ear pain have greatly improved since receiving antibiotics and motrin. Objective Last Vital Signs Temp 100.1 F H 08/10/18 07:35 Pulse 60 08/10/18 07:35 Resp 19 08/10/18 07:35 BP 135/81 08/10/18 07:35 Pulse Ox 94 08/10/18 07:35 - Physical Examination General: No Apparent Distress HEENT: Positive: EOMI, Normocephaly, Mucus Membranes Moist Neck: Positive: neck supple, trachea midline Cardiac: Positive: Reg Rate and Rhythm, S1/S2 Lungs: Positive: clear to auscultation Neuro: Positive: Grossly Intact Abdomen: Positive: Soft, Active Bowel Sounds. Negative: Tender Skin: Positive: Clear. Negative: Rash Musculoskeletal: Normal Range of Motion Extremities: Present: normal. Absent: edema - Labs and Meds CBC 08/10/18 Range/Units 06:03 WBC 7.0 (4.5-11.0) K/mm3 RBC 4.70 (3.65-5.03) M/mm3 Hgb 14.2 (10.1-14.3) gm/dl Hct 43.4 H (30.3-42.9) % Plt Count 177 (140-440) K/mm3 Lymph # 1.4 (1.2-5.4) K/mm3 [place] # 1.0 H (0.0-0.8) K/mm3 Eos # 0.1 (0.0-0.4) K/mm3 Baso # 0.0 (0.0-0.1) K/mm3 Comprehensive Metabolic Panel 08/09/18 08/10/18 Range/Units 14:54 06:03 Sodium 138 D 141 (137-145) mmol/L Potassium 4.3 (3.6-5.0) mmol/L Chloride 102.9 (98-107) mmol/L Carbon Dioxide 27 (22-30) mmol/L BUN 6 L (7-17) mg/dL Creatinine 0.9 (0.7-1.2) mg/dL Glucose 102 H (65-100) mg/dL Calcium 8.7 (8.4-10.2) mg/dL - Imaging and Cardiology EKG: image reviewed Echo: report reviewed (04/2018 showed EF 35-40%, LV mildly dilated, restrictive diastolic filling pattern, LA mildly dilated, mod to severe MR. ) RAFAEL: report reviewed ( Pt underwent LHC and RHC 04/2018 - normal coronaries except for kink in prox LAD that appeared severe in some views, physiologic testing with Pd/Pa was normal@1.0, dilated LV with EF <20% with global hypokinesis, normal RH pressures with mean PA 16mmHg, CO 2.52, CI 1.29. ) - Telemetry EKG Rhythm: Sinus Rhythm - EKG Sinus rhythms and dysrhythmias: sinus rhythm Ventricular dysrhythmias: ventricular premature com Chamber hypertrophy or enlargement: left ventricular hypertro
== END 2018-08-10 12:58 | disposition home or self-care (01) | DRG 153 ==
LOC: ED 19:29 → 4A 08-08 04:03
PROVIDERS: ADMIT Internal Medicine; ATTEND Internal Medicine
DX: H66.91 Otitis media, unspecified, right ear (principal); E87.1 Hypo-osmolality and hyponatremia; Z68.41 Body mass index [BMI] 40.0-44.9, adult; I42.9 Cardiomyopathy, unspecified; I50.22 Chronic systolic (congestive) heart failure; R51 Headache; I95.9 Hypotension, unspecified; E87.5 Hyperkalemia; F17.210 Nicotine dependence, cigarettes, uncomplicated; I34.0 Nonrheumatic mitral (valve) insufficiency; E66.9 Obesity, unspecified; Z82.49 Family history of ischemic heart disease and other diseases of the circulatory system
CPT/HCPCS: 36415; 70450; 70496; 70498; 71046; 80048; 82550; 82553; 82962; 83735; 83880; 84295; 84484; 85007; 85025; 85610; 85730; 93005; 93010; 99406; G0378; J1170; J1650; J1885; J2270; J2405; J7040; Q9967